=== PATIENT | male | born 1955 | race Two or more races ===

== ENCOUNTER 2019-04-19 02:31 | Inpatient (IN) | payer MEDICARE, OTHER ==
[~2019-04-19] VITALS: Ht 165.1 cm; Wt 80.3 kg
[2019-04-19] VITALS (8 sets, daily range): BP systolic 108–156; BP diastolic 58–90
[2019-04-19] MEDS ORDERED: ALBUTEROL (0.083%) 2.5MG/3ML NEB HHN STA (03:06)
[2019-04-19] MEDS ORDERED: IPRATROPIUM BROMIDE (0.02%) 0.5MG/2.5ML NEB HHN STA (03:06)
[2019-04-19] MEDS ORDERED: METHYLPREDNISOLONE SOD SUCC 125 MG/2 ML VIAL IV STA (03:06)
[2019-04-19] MEDS ORDERED: MAGNESIUM 2 G PREMIX 50 ML IV STA (03:06)
[2019-04-19 03:29] LABS: HEMATOCRIT 51.6 % (42.0-52.0); MEAN CORPUSCULAR VOLUME 94.2 fL (80.0-94.0); PLATELET 229 x1000/uL (130-400); RED BLOOD CELL COUNT 5.48 mill/uL (4.7-6.1); RED CELL DISTRIBUTION WIDTH 13.4 % (11.6-14.6)
[2019-04-19 03:35] LABS: CHLORIDE 106 mEq/L (98-107)
[2019-04-19] MEDS ORDERED: AZITHROMYCIN 500 MG in DEXT 5% WATER 250 ML IV NR (04:15)
[2019-04-19] MEDS ORDERED: CEFTRIAXONE 1 G PREMIX 50 ML IV NR (04:15)
[2019-04-19] MEDS ORDERED: CLONIDINE 0.1MG TABLET PO PRN (07:15)
[2019-04-19] MEDS ORDERED: DOCUSATE SODIUM 100MG CAPSULE PO PRN (07:15)
[2019-04-19] MEDS ORDERED: ACETAMINOPHEN 325MG TABLET PO PRN (07:15)
[2019-04-19] MEDS ORDERED: NITROGLYCERIN 0.4MG TABLET SL SL PRN (07:15)
[2019-04-19] MEDS ORDERED: KETOROLAC 15MG/ML VIAL IV PRN (07:15)
[2019-04-19] MEDS ORDERED: ONDANSETRON HCL 4MG/2ML INJ IV PRN (07:15)
[2019-04-19] MEDS ORDERED: GUAIFENESIN 200MG/10ML SUGAR FREE UDC PO PRN (07:15)
[2019-04-19] MEDS ORDERED: IPRATROPIUM/ALBUTEROL 0.5-3(2.5)MG/3ML NEB NEB PRN (07:15)
[2019-04-19] MEDS ORDERED: MAGNESIUM/ALUMINUM HYDROXIDE/SIMETHICONE 30ML UDC PO PRN (07:15)
[2019-04-19] MEDS ORDERED: LORAZEPAM 0.5MG TABLET PO PRN (07:15)
[2019-04-19] MEDS: GUAIFENESIN/DM 600MG/30MG ER TAB 12HR PO SCH ×2 (10:57→21:51)
[2019-04-19] MEDS: FAMOTIDINE 20MG TABLET PO SCH ×2 (10:57→21:51)
[2019-04-19] MEDS ORDERED: ENOXAPARIN 40MG/0.4ML SYR SUBCUT SCH (11:00)
[2019-04-19 11:58] LABS: *AMPHETAMINES SCREEN URINE NEGATIVE (NEGATIVE); *BARBITURATES SCREEN URINE NEGATIVE (NEGATIVE); *BENZODIAZEPINES SCREEN URINE NEGATIVE (NEGATIVE); *COCAINE SCREEN URINE NEGATIVE (NEGATIVE)
[2019-04-19 11:59] LABS: CANNABINOID URINE SCREEN PRESUMTIVE POSITIVE (NEGATIVE); METHADONE URINE SCREEN NEGATIVE (NEGATIVE); OPIATES URINE SCREEN NEGATIVE (NEGATIVE); PHENCYCLIDINE URINE SCREEN NEGATIVE (NEGATIVE)
[2019-04-19] MEDS: METHYLPREDNISOLONE SOD SUCC 125 MG/2 ML VIAL IV SCH ×2 (12:22→21:55)
[2019-04-19] MEDS: LEVOFLOXACIN 500MG PREMIX 100 ML IV SCH (12:22)
[2019-04-19] MEDS ORDERED: DEXTROSE 50% WATER 50ML SYRINGE IV PRN (13:00)
[2019-04-19] MEDS: FUROSEMIDE 40MG/4ML VIAL IV SCH ×2 (13:29→21:53)
[2019-04-19] MEDS: IPRATROPIUM/ALBUTEROL 0.5-3(2.5)MG/3ML NEB HHN SCH ×2 (15:26→20:26)
[2019-04-19 16:57] LABS: CREATINE KINASE MB FRACTION 20.3 ng/mL (0.5-3.6)
[2019-04-19] MEDS: BLOOD SUGAR DIAGNOSTIC STRIP TEST SCH ×2 (17:29→21:49)
[2019-04-19] MEDS: SPIRONOLACTONE 25MG TABLET PO SCH (17:55)
[2019-04-19] MEDS: INSULIN LISPRO 100 UNITS/ML SUBCUT SCH ×2 (17:56→21:50)
[2019-04-19 20:46] LABS: PROTHROMBIN TIME 10.5 sec (9.6-11.0)
[2019-04-19] MEDS: ATORVASTATIN CALCIUM 20MG TABLET PO SCH (21:51)
[2019-04-19] MEDS: ENOXAPARIN 80MG/0.8ML SYR SUBCUT SCH (22:04)
[2019-04-20] VITALS (11 sets, daily range): BP systolic 90–186; BP diastolic 52–113
[2019-04-20 01:04] LABS: CREATINE KINASE MB FRACTION 16.1 ng/mL (0.5-3.6)
[2019-04-20] MEDS: IPRATROPIUM/ALBUTEROL 0.5-3(2.5)MG/3ML NEB HHN SCH ×6 (03:54→21:15)
[2019-04-20] MEDS: METHYLPREDNISOLONE SOD SUCC 125 MG/2 ML VIAL IV SCH ×3 (05:05→20:57)
[2019-04-20] MEDS: SPIRONOLACTONE 25MG TABLET PO SCH ×2 (05:07→17:25)
[2019-04-20] MEDS: BLOOD SUGAR DIAGNOSTIC STRIP TEST SCH ×4 (07:22→20:56)
[2019-04-20] MEDS: FAMOTIDINE 20MG TABLET PO SCH ×2 (08:41→20:56)
[2019-04-20] MEDS: ASPIRIN 325MG EC TABLET PO SCH (08:41)
[2019-04-20] MEDS: FUROSEMIDE 40MG/4ML VIAL IV SCH ×2 (08:41→20:57)
[2019-04-20] MEDS: ENOXAPARIN 80MG/0.8ML SYR SUBCUT SCH ×2 (08:42→20:57)
[2019-04-20] MEDS: INSULIN LISPRO 100 UNITS/ML SUBCUT SCH ×4 (08:43→21:12)
[2019-04-20] MEDS: GUAIFENESIN/DM 600MG/30MG ER TAB 12HR PO SCH ×2 (08:55→21:18)
[2019-04-20] MEDS: LEVOFLOXACIN 500MG PREMIX 100 ML IV SCH (11:48)
[2019-04-20] MEDS: ATORVASTATIN CALCIUM 20MG TABLET PO SCH (20:56)
[2019-04-20] MEDS: ZOLPIDEM TARTRATE 5MG TABLET PO PRN (22:52)
[2019-04-21] VITALS (18 sets, daily range): BP systolic 110–147; BP diastolic 49–113
[2019-04-21] MEDS: IPRATROPIUM/ALBUTEROL 0.5-3(2.5)MG/3ML NEB HHN SCH ×4 (01:29→20:54)
[2019-04-21] MEDS: METHYLPREDNISOLONE SOD SUCC 125 MG/2 ML VIAL IV SCH ×3 (03:58→20:44)
[2019-04-21] MEDS: SPIRONOLACTONE 25MG TABLET PO SCH (05:28)
[2019-04-21 06:45] LABS: HEMATOCRIT. 48.2 % (42.0-52.0); HEMOGLOBIN. 16.1 g/dL (14.0-18.0); MEAN CORPUSCULAR HEMOGLOBIN 30.9 pg (28.0-32.0); MEAN CORPUSCULAR VOLUME 92.7 fL (80.0-94.0); MEAN PLATELET VOLUME 9.2 fl (7.4-10.4); PLATELET 209 x1000/uL (130-400); RED CELL DISTRIBUTION WIDTH 13.7 % (11.6-14.6)
[2019-04-21] MEDS: BLOOD SUGAR DIAGNOSTIC STRIP TEST SCH ×3 (07:13→20:55)
[2019-04-21 07:45] LABS: CHLORIDE 101 mEq/L (98-107)
[2019-04-21] MEDS: INSULIN LISPRO 100 UNITS/ML SUBCUT SCH ×3 (08:00→20:45)
[2019-04-21] MEDS: GUAIFENESIN/DM 600MG/30MG ER TAB 12HR PO SCH ×2 (08:45→20:17)
[2019-04-21] MEDS: FUROSEMIDE 40MG/4ML VIAL IV SCH ×2 (08:45→20:17)
[2019-04-21] MEDS: SODIUM CHLORIDE 0.45% 1,000 ML IV SCH ×2 (08:45→22:24)
[2019-04-21] MEDS: FAMOTIDINE 20MG TABLET PO SCH ×2 (08:45→20:16)
[2019-04-21] MEDS: ENOXAPARIN 80MG/0.8ML SYR SUBCUT SCH (08:46)
[2019-04-21] MEDS: ASPIRIN 325MG EC TABLET PO SCH (08:48)
[2019-04-21] MEDS ORDERED: IODIXANOL 320MG/ML 100 ML BOTTLE IV ONE (11:10)
[2019-04-21] MEDS ORDERED: LIDOCAINE HCL 1% 20ML VIAL (Pyxis) INJ ONE (11:10)
[2019-04-21] MEDS ORDERED: IOHEXOL-300 100 ML BOTTLE ONE (11:10)
[2019-04-21] MEDS ORDERED: FENTANYL CITRATE/PF 50MCG/ML 2ML VIAL ONE (11:20)
[2019-04-21] MEDS ORDERED: MIDAZOLAM HCL 2 MG/2 ML VIAL ONE (11:20)
[2019-04-21] MEDS ORDERED: ACETAMINOPHEN 325MG TABLET PO PRN (12:15)
[2019-04-21] MEDS ORDERED: ATROPINE SULFATE 1MG/10ML SYR IV PRN (12:15)
[2019-04-21] MEDS ORDERED: ONDANSETRON HCL 4MG/2ML INJ IV PRN (12:15)
[2019-04-21] MEDS: LEVOFLOXACIN 500MG PREMIX 100 ML IV SCH (12:45)
[2019-04-21] MEDS ORDERED: NITROGLYCERIN 0.4MG TABLET SL SL PRN (13:30)
[2019-04-21 13:45] LABS: PLATELET ESTIMATE NORMAL
[2019-04-21 15:39] LABS: CHLORIDE 103 mEq/L (98-107)
[2019-04-21 15:43] LABS: PARTIAL THROMBOPLASTIN TIME 30.2 sec (23.4-31.0); PROTHROMBIN TIME 10.7 sec (9.6-11.0)
[2019-04-21] MEDS ORDERED: MAGNESIUM 2 G PREMIX 50 ML IV SCH (16:00)
[2019-04-21] MEDS: HEPARIN 25,000 UNITS PREMIX 500 ML IV PRN (16:22)
[2019-04-21] MEDS ORDERED: HEPARIN 5000 UNITS/ML VIAL IV PRN ×2 (17:00)
[2019-04-21] MEDS ORDERED: METOPROLOL TARTRATE 5MG/5ML VIAL IV NR (18:37)
[2019-04-21] MEDS: ATORVASTATIN CALCIUM 20MG TABLET PO SCH (20:17)
[2019-04-21] MEDS: ZOLPIDEM TARTRATE 5MG TABLET PO PRN (20:44)
[2019-04-21] MEDS ORDERED: ASCORBIC ACID 500 MG TABLET PO SCH (21:00)
[2019-04-21] MEDS ORDERED: CHLORHEXIDINE GLUCONATE 4% EXTERNAL USE TOP SCH (21:00)
[2019-04-21] MEDS ORDERED: BISACODYL 10MG SUPP PR SCH (21:00)
[2019-04-21] MEDS ORDERED: DOCUSATE SODIUM 100MG CAPSULE PO SCH (21:00)
[2019-04-21] MEDS ORDERED: ALLOPURINOL 300 MG TABLET PO SCH (21:00)
[2019-04-21] MEDS ORDERED: METOPROLOL TARTRATE 5MG/5ML VIAL IV PRN (22:00)
[2019-04-22] VITALS (12 sets, daily range): BP systolic 101–161; BP diastolic 59–100
[2019-04-22] MEDS: IPRATROPIUM/ALBUTEROL 0.5-3(2.5)MG/3ML NEB HHN SCH ×6 (00:45→20:31)
[2019-04-22] MEDS ORDERED: HEPARIN BOLUS PRN aPTT 30-44 IV ×2 (02:00)
[2019-04-22] MEDS ORDERED: HEPARIN BOLUS PRN aPTT <30 IV ×2 (02:00)
[2019-04-22] MEDS ORDERED: CHLORHEXIDINE GLUCONATE 4% EXTERNAL USE TOP SCH ×2 (04:00→21:00)
[2019-04-22] MEDS: METHYLPREDNISOLONE SOD SUCC 125 MG/2 ML VIAL IV SCH ×3 (04:29→20:12)
[2019-04-22] MEDS: BLOOD SUGAR DIAGNOSTIC STRIP TEST SCH ×4 (06:50→21:00)
[2019-04-22] MEDS: INSULIN LISPRO 100 UNITS/ML SUBCUT SCH ×4 (06:59→21:13)
[2019-04-22 07:37] LABS: CHLORIDE 101 mEq/L (98-107)
[2019-04-22 07:49] LABS: HEMATOCRIT. 47.2 % (42.0-52.0); HEMOGLOBIN. 15.8 g/dL (14.0-18.0); MEAN CORPUSCULAR VOLUME 92.4 fL (80.0-94.0); MEAN PLATELET VOLUME 9.4 fl (7.4-10.4); PLATELET 195 x1000/uL (130-400); RED BLOOD CELL COUNT 5.11 mill/uL (4.7-6.1); RED CELL DISTRIBUTION WIDTH 13.6 % (11.6-14.6)
[2019-04-22] MEDS: ASPIRIN 81MG EC TABLET PO SCH (08:51)
[2019-04-22] MEDS: GUAIFENESIN/DM 600MG/30MG ER TAB 12HR PO SCH ×2 (08:51→20:13)
[2019-04-22] MEDS: FUROSEMIDE 40MG/4ML VIAL IV SCH ×2 (08:52→20:12)
[2019-04-22] MEDS: FAMOTIDINE 20MG TABLET PO SCH ×2 (08:52→20:13)
[2019-04-22] MEDS ORDERED: METOPROLOL TARTRATE 5MG/5ML VIAL IV SCH (09:00)
[2019-04-22] MEDS: SODIUM CHLORIDE 0.45% 1,000 ML IV SCH (09:13)
[2019-04-22] MEDS: LEVOFLOXACIN 500MG PREMIX 100 ML IV SCH (11:15)
[2019-04-22] MEDS ORDERED: MAGNESIUM 2 G PREMIX 50 ML IV NR (11:30)
[2019-04-22] MEDS ORDERED: MINERAL OIL 30ML BOTTLE PO NR (11:30)
[2019-04-22 11:33] LABS: PLATELET ESTIMATE NORMAL
[2019-04-22] MEDS ORDERED: MEDIUM CHAIN TRIGLYCERIDES PO SCH (12:00)
[2019-04-22] MEDS: METOPROLOL TARTRATE 5MG/5ML VIAL IV SCH ×2 (13:57→21:36)
[2019-04-22] MEDS: HEPARIN 25,000 UNITS PREMIX 500 ML IV PRN (14:28)
[2019-04-22] MEDS: ALLOPURINOL 300 MG TABLET PO SCH (20:13)
[2019-04-22] MEDS: ATORVASTATIN CALCIUM 20MG TABLET PO SCH (20:13)
[2019-04-22] MEDS ORDERED: ASCORBIC ACID 500 MG TABLET PO SCH (21:00)
[2019-04-22] MEDS: ZOLPIDEM TARTRATE 5MG TABLET PO PRN (22:07)
[2019-04-23] VITALS (68 sets, daily range): BP systolic 100–271; BP diastolic -4–101
[2019-04-23] MEDS: SODIUM CHLORIDE 0.45% 1,000 ML IV SCH ×2 (00:05→11:00)
[2019-04-23] MEDS: IPRATROPIUM/ALBUTEROL 0.5-3(2.5)MG/3ML NEB HHN SCH ×4 (00:35→15:23)
[2019-04-23] MEDS ORDERED: DOPAMINE 400MG/250ML PREMIX 250 ML IV PRN ×3 (04:45→14:16)
[2019-04-23] MEDS ORDERED: DILTIAZEM HCL 5MG/ML 25ML VIAL IV PRN (05:00)
[2019-04-23] MEDS ORDERED: METHYLENE BLUE 50 MG/10 ML AMP IV ONE (05:12)
[2019-04-23] MEDS ORDERED: THROMBIN (BOVINE) 5000 UNITS/VIAL TOP ONE (05:13)
[2019-04-23] MEDS ORDERED: BACITRACIN 15GM TUBE TOP ONE (05:13)
[2019-04-23] MEDS ORDERED: BACITRACIN 50,000 UNITS/VIAL ONE (05:14)
[2019-04-23] MEDS ORDERED: HEPARIN 1000 UNITS/ML 10ML ONE ×4 (05:52→08:28)
[2019-04-23] MEDS ORDERED: NICARDIPINE 50 MG in NS 250 ML IV PRN (06:00)
[2019-04-23] MEDS ORDERED: CEFAZOLIN 2,000 MG in DEXT 5% WATER 100 ML IV PRN (06:00)
[2019-04-23] MEDS ORDERED: PAPAVERINE HCL 180MG in SODIUM CHLORIDE 0.9% 24ML IV PRN (06:00)
[2019-04-23] MEDS ORDERED: INSULIN REGULAR (DRIP) 100 UNITS in SODIUM CHLORIDE 0.9% 99 ML IV PRN ×2 (06:00→20:30)
[2019-04-23] MEDS ORDERED: NOREPINEPHRINE 4 MG in DEXT 5% WATER 246 ML IV PRN (06:00)
[2019-04-23] MEDS ORDERED: CHLORHEXIDINE GLUCONATE 4% EXTERNAL USE TOP NR (06:00)
[2019-04-23] MEDS ORDERED: EPINEPHRINE 4 MG in DEXT 5% WATER 246 ML IV PRN (06:00)
[2019-04-23] MEDS ORDERED: DEL NIDO ELECTROLYTE-S(PH 7.4) 1,000 ML IV PRN ×2 (06:00)
[2019-04-23] MEDS ORDERED: PHENYLEPHRINE 10 MG in DEXT 5% WATER 249 ML IV PRN (06:00)
[2019-04-23] MEDS ORDERED: DOBUTAMINE 250MG PREMIX 250 ML IV PRN (06:00)
[2019-04-23] MEDS ORDERED: AMINOCAPROIC ACID 10,000 MG in SODIUM CHLORIDE 0.9% 460 ML IV PRN (06:00)
[2019-04-23] MEDS ORDERED: ACETAMINOPHEN 500MG TABLET PO SCH (06:30)
[2019-04-23] MEDS ORDERED: ETOMIDATE 2MG/ML 10ML VIAL IV ONE (06:43)
[2019-04-23] MEDS ORDERED: FENTANYL CITRATE/PF 50MCG/ML 5ML VIAL ONE (06:43)
[2019-04-23] MEDS ORDERED: MIDAZOLAM HCL 2 MG/2 ML VIAL ONE (06:43)
[2019-04-23] MEDS ORDERED: PHENYLEPHRINE HCL 10 MG/ML 1ML (IV VIAL) IV ONE ×2 (06:48→08:15)
[2019-04-23] MEDS ORDERED: PROPOFOL 10MG/ML 100ML 100 ML IV ONE (06:52)
[2019-04-23] MEDS ORDERED: METOPROLOL TARTRATE 5MG/5ML VIAL IV ONE (07:03)
[2019-04-23 07:50] LABS: CHLORIDE 102 mEq/L (98-107); HEMATOCRIT. 48.6 % (42.0-52.0); HEMOGLOBIN. 16.3 g/dL (14.0-18.0); MEAN CORPUSCULAR HEMOGLOBIN 30.9 pg (28.0-32.0); MEAN CORPUSCULAR VOLUME 92.4 fL (80.0-94.0); PLATELET 195 x1000/uL (130-400); RED BLOOD CELL COUNT 5.25 mill/uL (4.7-6.1); RED CELL DISTRIBUTION WIDTH 13.5 % (11.6-14.6)
[2019-04-23] MEDS ORDERED: HEPARIN 10,000 UNITS/ML VIAL ONE (07:50)
[2019-04-23] MEDS ORDERED: FUROSEMIDE 100MG/10ML VIAL ONE (08:09)
[2019-04-23] MEDS ORDERED: AMINOCAPROIC ACID 250 MG/ML 20ML VIAL ONE (08:14)
[2019-04-23] MEDS ORDERED: MAGNESIUM SULFATE 5GM/10ML VIAL IV ONE (08:14)
[2019-04-23] MEDS ORDERED: SODIUM BICARBONATE 8.4% 1 MEQ/ML 50ML SYR IV ONE ×2 (08:15→08:16)
[2019-04-23] MEDS ORDERED: ALBUMIN HUMAN 25GM/100ML (25%) IV ONE (08:15)
[2019-04-23] MEDS ORDERED: CALCIUM CHLORIDE 1GM/10ML SYR IV ONE ×2 (08:15→10:08)
[2019-04-23] MEDS ORDERED: MANNITOL 20% 500 ML IV ONE (08:16)
[2019-04-23] MEDS ORDERED: NITROGLYCERIN 50MG PREMIX 250 ML IV ONE (08:30)
[2019-04-23] MEDS ORDERED: SKIN ADHESIVE 0.7 GM EA TOP ONE (08:55)
[2019-04-23] MEDS ORDERED: ONDANSETRON HCL 4MG/2ML INJ ONE (09:36)
[2019-04-23] MEDS ORDERED: METOCLOPRAMIDE HCL 10MG/2ML VIAL ONE (09:36)
[2019-04-23] MEDS ORDERED: PROTAMINE SULFATE 10MG/ML VIAL 25ML IV ONE (09:36)
[2019-04-23] MEDS ORDERED: DEXMEDETOMIDINE 400 MCG/100 ML 100 ML IV SCH (09:45)
[2019-04-23] MEDS ORDERED: NEOSTIGMINE METHYLSULFATE 1MG/ML 10 ML VIAL ONE (09:55)
[2019-04-23] MEDS ORDERED: SODIUM CHLORIDE 0.9% 500 ML IV PRN (10:14)
[2019-04-23] MEDS ORDERED: EPINEPHRINE 1 MG in DEXT 5% WATER 250 ML IV PRN (10:15)
[2019-04-23] MEDS ORDERED: MAGNESIUM SULFATE 3 GM in DEXT 5% WATER 100 ML IV PRN (10:15)
[2019-04-23] MEDS ORDERED: MORPHINE SULFATE 2 MG/ML CPJ (NOT FOR IM USE) IV PRN (10:15)
[2019-04-23] MEDS ORDERED: CALCIUM CHLORIDE 3,000 MG in DEXT 5% WATER 250 ML IV PRN (10:15)
[2019-04-23] MEDS ORDERED: KETOROLAC 30MG/ML VIAL ONE (10:20)
[2019-04-23] MEDS ORDERED: LABETALOL HCL 5MG/ML VIAL 20ML IV ONE (10:23)
[2019-04-23] MEDS ORDERED: MAGNESIUM 2 G PREMIX 50 ML IV PRN (10:30)
[2019-04-23] MEDS: LEVOFLOXACIN 500MG PREMIX 100 ML IV SCH (11:00)
[2019-04-23 11:07] LABS: MEAN CORPUSCULAR HEMOGLOBIN 32.3 pg (28.0-32.0); MEAN CORPUSCULAR VOLUME 91.8 fL (80.0-94.0); MEAN PLATELET VOLUME 9.2 fl (7.4-10.4); PLATELET 195 x1000/uL (130-400); RED BLOOD CELL COUNT 3.81 mill/uL (4.7-6.1); RED CELL DISTRIBUTION WIDTH 13.2 % (11.6-14.6)
[2019-04-23 11:11] LABS: BG CARBOXYHEMOGLOBIN 0.3 % (0.5-1.5); BG DEOXYHEMOGLOBIN 0.9 % (0.0-5.0); BG FRACTION INSPIRED OXYGEN 80; BG HCO3 ACT 31.2 mmol/L (22.0-26.0); BG METHEMOGLOBIN 0.4 % (0.0-1.5); BG OXYGEN SATURATION 99.1 % (92.0-98.5); BG OXYHEMOGLOBIN 98.4 % (94.0-97.0); BG PCO2 53.1 mmHg (35.0-45.0); BG PH 7.387 (7.350-7.450); BG PO2 236.8 mmHg (75.0-100.0); BG SAMPLE SITE A-LINE; BG TOTAL HEMOGLOBIN 12.9 g/dL (12.0-18.0); BG VENT MODE MASK - SIMPLE
[2019-04-23 11:13] LABS: HEMOGLOBIN. 12.3 g/dL (14.0-18.0)
[2019-04-23] MEDS: DEXT 5%/0.45% NACL 1000ML 1,000 ML IV SCH (11:56)
[2019-04-23] MEDS: METHYLPREDNISOLONE SOD SUCC 125 MG/2 ML VIAL IV SCH (12:00)
[2019-04-23] MEDS: ASPIRIN 81MG EC TABLET PO SCH (12:00)
[2019-04-23] MEDS: BLOOD SUGAR DIAGNOSTIC STRIP TEST SCH ×14 (12:00→23:31)
[2019-04-23] MEDS: METOPROLOL TARTRATE 5MG/5ML VIAL IV SCH ×2 (12:00→14:00)
[2019-04-23] MEDS: FUROSEMIDE 40MG/4ML VIAL IV SCH (12:00)
[2019-04-23] MEDS: FAMOTIDINE 20MG TABLET PO SCH (12:00)
[2019-04-23] MEDS: ALLOPURINOL 300 MG TABLET PO SCH (12:00)
[2019-04-23] MEDS: GUAIFENESIN/DM 600MG/30MG ER TAB 12HR PO SCH (12:00)
[2019-04-23] MEDS ORDERED: PROTAMINE SULFATE 10MG/ML VIAL 25ML IV STA (12:05)
[2019-04-23 12:10] LABS: CHLORIDE 101 mEq/L (98-107)
[2019-04-23 12:14] LABS: INR 1.3; PROTHROMBIN TIME 12.9 sec (9.6-11.0)
[2019-04-23 12:16] LABS: PARTIAL THROMBOPLASTIN TIME 27.3 sec (23.4-31.0)
[2019-04-23] MEDS ORDERED: ALBUMIN HUMAN 12.5G/250ML (5%) IV NR (13:30)
[2019-04-23] MEDS ORDERED: PROTAMINE SULFATE 10MG/ML VIAL 25ML IV NR (13:30)
[2019-04-23] MEDS ORDERED: CALCIUM CHLORIDE IV PRN (13:45)
[2019-04-23] MEDS ORDERED: SODIUM CHLORIDE 0.9% IV PRN (13:45)
[2019-04-23] MEDS: KCL 10MEQ/50ML PREMIX 100 ML IV PRN ×2 (13:46→15:03)
[2019-04-23] MEDS ORDERED: KCL 10MEQ/50ML PREMIX 200 ML IV PRN (14:00)
[2019-04-23] MEDS: ALBUMIN HUMAN 12.5G/250ML (5%) IV PRN (14:23)
[2019-04-23] MEDS ORDERED: EPINEPHRINE 1 MG in DEXT 5% WATER 249 ML IV PRN (14:30)
[2019-04-23] MEDS ORDERED: SODIUM CHLORIDE 0.9% 1,000 ML IV SCH (14:45)
[2019-04-23] MEDS: CEFAZOLIN 1000MG PREMIX 50 ML IV SCH ×2 (14:56→23:30)
[2019-04-23] MEDS: OXYCODONE HCL/ACETAMINOPHEN 5/325MG TABLET PO PRN (16:18)
[2019-04-23 16:32] LABS: PLATELET ESTIMATE NORMAL
[2019-04-23] MEDS: BACITRACIN 15GM TUBE TOP SCH (16:47)
[2019-04-23] MEDS ORDERED: DOCUSATE SODIUM 100MG CAPSULE PO SCH (17:00)
[2019-04-23] MEDS: MORPHINE SULFATE 2 MG/ML CPJ (NOT FOR IM USE) IV PRN (17:03)
[2019-04-23 17:37] LABS: PLATELET ESTIMATE NORMAL
[2019-04-23 18:04] LABS: HEMATOCRIT 30.3 % (42.0-52.0); HEMOGLOBIN 10.4 g/dL (14.0-18.0); MEAN CORPUSCULAR HEMOGLOBIN 31.4 pg (28.0-32.0); MEAN CORPUSCULAR VOLUME 91.5 fL (80.0-94.0); PLATELET 147 x1000/uL (130-400); RED BLOOD CELL COUNT 3.31 mill/uL (4.7-6.1); RED CELL DISTRIBUTION WIDTH 13.6 % (11.6-14.6)
[2019-04-23 18:06] LABS: CHLORIDE 104 mEq/L (98-107)
[2019-04-23] MEDS: MAGNESIUM 1 G PREMIX 100 ML IV PRN (18:17)
[2019-04-23 18:45] LABS: CLARITY URINE CLEAR (CLEAR); COLOR URINE RED (YELLOW); KETONES URINE NEGATIVE (NEGATIVE); LEUKOCYTE ESTERASE URINE 1+ (NEGATIVE); NITRITE URINE POSITIVE (NEGATIVE); OCCULT BLOOD URINE 2+ (NEGATIVE); PROTEIN URINE 2+ (NEGATIVE); SPECIFIC GRAVITY URINE 1.016 (1.005-1.030); UROBILINOGEN URINE 0.2 E.U./dL (0.2-1.0)
[2019-04-23] MEDS: KETOROLAC 30MG/ML VIAL IV PRN (20:11)
[2019-04-23] MEDS ORDERED: DEXTROSE 50% WATER 50ML SYRINGE IV PRN ×2 (20:30)
[2019-04-23] MEDS ORDERED: INSULIN REGULAR (DRIP) 100 UNITS in SODIUM CHLORIDE 0.9% 100 ML IV SCH (20:35)
[2019-04-24] VITALS (74 sets, daily range): BP systolic 90–157; BP diastolic -3–78
[2019-04-24] MEDS: OXYCODONE HCL/ACETAMINOPHEN 5/325MG TABLET PO PRN ×2 (00:11→12:34)
[2019-04-24] MEDS: IPRATROPIUM/ALBUTEROL 0.5-3(2.5)MG/3ML NEB HHN SCH ×6 (00:29→21:08)
[2019-04-24 00:38] LABS: HEMATOCRIT 30.3 % (42.0-52.0); HEMOGLOBIN 10.3 g/dL (14.0-18.0)
[2019-04-24] MEDS: MORPHINE SULFATE 2 MG/ML CPJ (NOT FOR IM USE) IV PRN ×3 (01:12→23:24)
[2019-04-24] MEDS: BLOOD SUGAR DIAGNOSTIC STRIP TEST SCH ×16 (01:26→21:00)
[2019-04-24] MEDS ORDERED: NICARDIPINE 50 MG in SODIUM CHLORIDE 0.9% 230 ML IV PRN (01:30)
[2019-04-24] MEDS ORDERED: METOPROLOL TARTRATE 25MG TABLET PO SCH (03:00)
[2019-04-24] MEDS: MAGNESIUM HYDROXIDE 400MG/5ML 30ML UDC PO PRN (03:19)
[2019-04-24] MEDS: ALBUMIN HUMAN 25GM/100ML (25%) IV SCH ×2 (03:19→05:42)
[2019-04-24] MEDS: KETOROLAC 30MG/ML VIAL IV PRN (03:21)
[2019-04-24 05:27] LABS: BASOPHILS % 0.2 % (0.0-2.0); HEMATOCRIT. 27.5 % (42.0-52.0); HEMOGLOBIN. 9.4 g/dL (14.0-18.0); LYMPHOCYTES % 8.1 % (20.0-50.0); MEAN PLATELET VOLUME 9.8 fl (7.4-10.4); MONOCYTES % 11.6 % (2.0-8.0); NEUTROPHILS % 80.1 % (40.0-76.0); PLATELET 110 x1000/uL (130-400); RED BLOOD CELL COUNT 3.02 mill/uL (4.7-6.1); RED CELL DISTRIBUTION WIDTH 13.6 % (11.6-14.6)
[2019-04-24 05:35] LABS: CHLORIDE 102 mEq/L (98-107)
[2019-04-24] MEDS: CEFAZOLIN 1000MG PREMIX 50 ML IV SCH ×2 (05:41→15:21)
[2019-04-24 05:44] LABS: PHOSPHORUS 3.9 mg/dL (2.5-4.9)
[2019-04-24] MEDS: DEXT 5%/0.45% NACL 1000ML 1,000 ML IV SCH (05:44)
[2019-04-24] MEDS: KCL 10MEQ/50ML PREMIX 150 ML IV PRN ×2 (06:04→15:21)
[2019-04-24] MEDS: MAGNESIUM 1 G PREMIX 100 ML IV PRN (06:53)
[2019-04-24] MEDS: ALBUMIN HUMAN 12.5G/250ML (5%) IV PRN ×2 (08:23→08:53)
[2019-04-24] MEDS: BACITRACIN 15GM TUBE TOP SCH ×2 (08:58→17:00)
[2019-04-24] MEDS ORDERED: FUROSEMIDE 40MG/4ML VIAL IVP SCH (10:30)
[2019-04-24] MEDS: ASPIRIN 81MG TABLET PO SCH (10:37)
[2019-04-24] MEDS: LEVOFLOXACIN 500MG PREMIX 100 ML IV SCH (10:37)
[2019-04-24] MEDS: INSULIN GLARGINE UD 100 UNITS/ML SYR SUBCUT SCH ×2 (13:51→22:25)
[2019-04-24 14:06] LABS: BASOPHILS % 0.1 % (0.0-2.0); HEMATOCRIT. 25.1 % (42.0-52.0); HEMOGLOBIN. 8.4 g/dL (14.0-18.0); LYMPHOCYTES % 9.4 % (20.0-50.0); MEAN CORPUSCULAR HEMOGLOBIN 30.9 pg (28.0-32.0); MEAN CORPUSCULAR VOLUME 92.2 fL (80.0-94.0); MONOCYTES % 8.7 % (2.0-8.0); NEUTROPHILS % 81.8 % (40.0-76.0); PLATELET 90 x1000/uL (130-400); RED BLOOD CELL COUNT 2.72 mill/uL (4.7-6.1); RED CELL DISTRIBUTION WIDTH 13.3 % (11.6-14.6)
[2019-04-24 14:31] LABS: CHLORIDE 100 mEq/L (98-107)
[2019-04-24] MEDS: INSULIN LISPRO 100 UNITS/ML SUBCUT SCH ×2 (18:20→22:25)
[2019-04-24 20:58] LABS: HEMATOCRIT 26.1 % (42.0-52.0); HEMOGLOBIN 8.9 g/dL (14.0-18.0)
[2019-04-24] MEDS: ATORVASTATIN CALCIUM 40MG TABLET PO SCH (22:21)
[2019-04-24] MEDS: METOPROLOL TARTRATE 25MG TABLET PO SCH (22:23)
[2019-04-25] VITALS (14 sets, daily range): BP systolic 113–158; BP diastolic 57–78
[2019-04-25] MEDS: IPRATROPIUM/ALBUTEROL 0.5-3(2.5)MG/3ML NEB HHN SCH ×6 (01:21→21:16)
[2019-04-25] MEDS: MORPHINE SULFATE 2 MG/ML CPJ (NOT FOR IM USE) IV PRN ×3 (03:58→23:20)
[2019-04-25 06:17] LABS: BASOPHILS % 0.1 % (0.0-2.0); HEMOGLOBIN. 8.9 g/dL (14.0-18.0); MEAN CORPUSCULAR HEMOGLOBIN 31.4 pg (28.0-32.0); MEAN CORPUSCULAR VOLUME 92.2 fL (80.0-94.0); MEAN PLATELET VOLUME 10.5 fl (7.4-10.4); MONOCYTES % 11.9 % (2.0-8.0); PLATELET 87 x1000/uL (130-400); RED BLOOD CELL COUNT 2.82 mill/uL (4.7-6.1); RED CELL DISTRIBUTION WIDTH 13.2 % (11.6-14.6)
[2019-04-25 06:22] LABS: CHLORIDE 100 mEq/L (98-107)
[2019-04-25 06:35] LABS: PHOSPHORUS 3.4 mg/dL (2.5-4.9)
[2019-04-25] MEDS: BLOOD SUGAR DIAGNOSTIC STRIP TEST SCH ×4 (06:51→20:32)
[2019-04-25] MEDS: INSULIN LISPRO 100 UNITS/ML SUBCUT SCH ×4 (08:40→20:32)
[2019-04-25] MEDS: ASPIRIN 81MG TABLET PO SCH (08:40)
[2019-04-25] MEDS: FOLIC ACID 1MG TABLET PO SCH (08:40)
[2019-04-25] MEDS: THIAMINE HCL 100MG TABLET PO SCH (08:40)
[2019-04-25] MEDS: METOPROLOL TARTRATE 25MG TABLET PO SCH ×2 (08:41→20:18)
[2019-04-25] MEDS: FUROSEMIDE 40MG TABLET PO SCH (09:54)
[2019-04-25] MEDS: DOCUSATE SODIUM 100MG CAPSULE PO SCH ×2 (09:54→17:26)
[2019-04-25] MEDS ORDERED: MINERAL OIL 30ML BOTTLE PO SCH (10:00)
[2019-04-25] MEDS: BACITRACIN 15GM TUBE TOP SCH ×2 (10:51→17:26)
[2019-04-25] MEDS: LEVOFLOXACIN 500MG PREMIX 100 ML IV SCH (10:51)
[2019-04-25] MEDS: INSULIN GLARGINE UD 100 UNITS/ML SYR SUBCUT SCH ×2 (11:08→21:36)
[2019-04-25] MEDS: HYDROCODONE/ACETAMINOPHEN 5/325MG TABLET PO PRN ×2 (12:28→17:26)
[2019-04-25] MEDS: ATORVASTATIN CALCIUM 40MG TABLET PO SCH (20:18)
[2019-04-25] MEDS: MAGNESIUM HYDROXIDE 400MG/5ML 30ML UDC PO PRN (23:19)
[2019-04-26] VITALS (17 sets, daily range): BP systolic 108–148; BP diastolic 53–83
[2019-04-26] MEDS: IPRATROPIUM/ALBUTEROL 0.5-3(2.5)MG/3ML NEB HHN SCH ×6 (04:00→21:04)
[2019-04-26] MEDS: MAGNESIUM HYDROXIDE 400MG/5ML 30ML UDC PO PRN (05:40)
[2019-04-26] MEDS: MORPHINE SULFATE 2 MG/ML CPJ (NOT FOR IM USE) IV PRN ×2 (05:41→13:20)
[2019-04-26] MEDS: BLOOD SUGAR DIAGNOSTIC STRIP TEST SCH ×4 (05:45→20:38)
[2019-04-26] MEDS: INSULIN LISPRO 100 UNITS/ML SUBCUT SCH ×4 (07:20→20:40)
[2019-04-26] MEDS: DOCUSATE SODIUM 100MG CAPSULE PO SCH ×2 (09:04→17:47)
[2019-04-26] MEDS: FUROSEMIDE 40MG TABLET PO SCH (09:04)
[2019-04-26] MEDS: FOLIC ACID 1MG TABLET PO SCH (09:04)
[2019-04-26] MEDS: ASPIRIN 81MG TABLET PO SCH (09:04)
[2019-04-26] MEDS: THIAMINE HCL 100MG TABLET PO SCH (09:04)
[2019-04-26] MEDS: BACITRACIN 15GM TUBE TOP SCH ×2 (09:05→17:48)
[2019-04-26] MEDS: INSULIN GLARGINE UD 100 UNITS/ML SYR SUBCUT SCH ×2 (09:11→22:24)
[2019-04-26] MEDS: METOPROLOL TARTRATE 25MG TABLET PO SCH ×2 (09:12→20:38)
[2019-04-26 10:42] LABS: HEMATOCRIT. 26.5 % (42.0-52.0); HEMOGLOBIN. 8.9 g/dL (14.0-18.0); MEAN CORPUSCULAR HEMOGLOBIN 31.1 pg (28.0-32.0); MEAN CORPUSCULAR VOLUME 92.8 fL (80.0-94.0); MEAN PLATELET VOLUME 10.2 fl (7.4-10.4); PLATELET 123 x1000/uL (130-400); RED BLOOD CELL COUNT 2.86 mill/uL (4.7-6.1); RED CELL DISTRIBUTION WIDTH 13.4 % (11.6-14.6)
[2019-04-26 10:59] LABS: CHLORIDE 101 mEq/L (98-107)
[2019-04-26] MEDS: POLYETHYLENE GLYCOL 3350 (17GM) 1 DOSE PACK PO SCH (11:00)
[2019-04-26 11:04] LABS: PHOSPHORUS 2.4 mg/dL (2.5-4.9)
[2019-04-26 11:16] LABS: PLATELET ESTIMATE SLIGHTLY DECREASED
[2019-04-26] MEDS ORDERED: SODIUM PHOS,M-BASIC-D-BASIC 10 MM in DEXT 5% WATER 246.6667 ML IV NR (12:30)
[2019-04-26] MEDS ORDERED: FUROSEMIDE 40MG/4ML VIAL IVP NR (13:15)
[2019-04-26] MEDS ORDERED: MAGNESIUM 2 G PREMIX 50 ML IV NR (14:30)
[2019-04-26] MEDS: HYDROCODONE/ACETAMINOPHEN 5/325MG TABLET PO PRN (17:49)
[2019-04-26] MEDS: ATORVASTATIN CALCIUM 40MG TABLET PO SCH (20:37)
[2019-04-27] VITALS (14 sets, daily range): BP systolic 121–152; BP diastolic 66–87
[2019-04-27] MEDS: BLOOD SUGAR DIAGNOSTIC STRIP TEST SCH ×2 (06:36→12:34)
[2019-04-27] MEDS: INSULIN LISPRO 100 UNITS/ML SUBCUT SCH ×2 (07:20→12:42)
[2019-04-27 07:22] LABS: CHLORIDE 102 mEq/L (98-107)
[2019-04-27 07:47] LABS: BASOPHILS % 0.1 % (0.0-2.0); EOSINOPHILS % 0.8 % (0.0-5.0); HEMOGLOBIN. 9.3 g/dL (14.0-18.0); LYMPHOCYTES % 9.1 % (20.0-50.0); MEAN CORPUSCULAR HEMOGLOBIN 30.7 pg (28.0-32.0); MEAN CORPUSCULAR VOLUME 91.9 fL (80.0-94.0); MEAN PLATELET VOLUME 9.4 fl (7.4-10.4); MONOCYTES % 10.7 % (2.0-8.0); NEUTROPHILS % 79.3 % (40.0-76.0); PLATELET 179 x1000/uL (130-400); RED BLOOD CELL COUNT 3.04 mill/uL (4.7-6.1); RED CELL DISTRIBUTION WIDTH 13.3 % (11.6-14.6)
[2019-04-27] MEDS: IPRATROPIUM/ALBUTEROL 0.5-3(2.5)MG/3ML NEB HHN SCH ×3 (08:00→12:00)
[2019-04-27] MEDS: FUROSEMIDE 40MG TABLET PO SCH (08:42)
[2019-04-27] MEDS: THIAMINE HCL 100MG TABLET PO SCH (08:42)
[2019-04-27] MEDS: DOCUSATE SODIUM 100MG CAPSULE PO SCH (08:42)
[2019-04-27] MEDS: POLYETHYLENE GLYCOL 3350 (17GM) 1 DOSE PACK PO SCH (08:42)
[2019-04-27] MEDS: ASPIRIN 81MG TABLET PO SCH (08:42)
[2019-04-27] MEDS: FOLIC ACID 1MG TABLET PO SCH (08:42)
[2019-04-27] MEDS: METOPROLOL TARTRATE 25MG TABLET PO SCH (08:42)
[2019-04-27] MEDS ORDERED: CEFTRIAXONE SODIUM 1 G/VIAL IV ONE (08:45)
[2019-04-27] MEDS: BACITRACIN 15GM TUBE TOP SCH (09:00)
[2019-04-27] MEDS ORDERED: SULFAMETHOXAZOLE/TRIMETHOPRIM 800/160MG TABLET PO SCH (10:00)
[2019-04-27] MEDS ORDERED: AMLODIPINE 5MG TABLET PO SCH (10:00)
[2019-04-27] MEDS: INSULIN GLARGINE UD 100 UNITS/ML SYR SUBCUT SCH (10:59)
[2019-04-27] MEDS ORDERED: CEFTRIAXONE 1 G PREMIX 50 ML IV NR (12:00)
[2019-04-27] MEDS ORDERED: METOPROLOL TARTRATE 50MG TABLET PO SCH (21:00)
[2019-04-27] MEDS ORDERED: FAMOTIDINE 20MG TABLET PO SCH (21:00)
[2019-04-27] MEDS ORDERED: ATORVASTATIN CALCIUM 40MG TABLET PO SCH (21:00)
== END 2019-04-27 15:20 | DRG 233 ==
LOC: ER 03:29 → 5EST 04:06 → ENRESERV 04:46 → CANRESERV 04:46 → ENRESERV 07:03 → 3WST 04-21 12:28 → CVICU 04-23 08:31 → 3WST 04-24 18:21
PROVIDERS: ADMIT Internal Medicine; ATTEND Internal Medicine
PROC: 5A09357 Assistance with Respiratory Ventilation, Less than 24 Consecutive Hours, Continuous Positive Airway Pressure (ICD-10-PCS; 2019-04-19)
PROC: 4A023N7 Measurement of Cardiac Sampling and Pressure, Left Heart, Percutaneous Approach (ICD-10-PCS; 2019-04-21)
PROC: B211YZZ Fluoroscopy of Multiple Coronary Arteries using Other Contrast (ICD-10-PCS; 2019-04-21)
PROC: B215YZZ Fluoroscopy of Left Heart using Other Contrast (ICD-10-PCS; 2019-04-21)
PROC: 02100Z9 Bypass Coronary Artery, One Artery from Left Internal Mammary, Open Approach (ICD-10-PCS; principal; 2019-04-23)
PROC: 021209W Bypass Coronary Artery, Three Arteries from Aorta with Autologous Venous Tissue, Open Approach (ICD-10-PCS; 2019-04-23)
PROC: 06BP4ZZ Excision of Right Saphenous Vein, Percutaneous Endoscopic Approach (ICD-10-PCS; 2019-04-23)
PROC: 5A1221Z Performance of Cardiac Output, Continuous (ICD-10-PCS; 2019-04-23)
DX: I21.4 Non-ST elevation (NSTEMI) myocardial infarction (principal); J96.00 Acute respiratory failure, unspecified whether with hypoxia or hypercapnia; I50.43 Acute on chronic combined systolic (congestive) and diastolic (congestive) heart failure; J44.1 Chronic obstructive pulmonary disease with (acute) exacerbation; I42.9 Cardiomyopathy, unspecified; I47.2 Ventricular tachycardia; J45.901 Unspecified asthma with (acute) exacerbation; J98.11 Atelectasis; N39.0 Urinary tract infection, site not specified; I25.10 Atherosclerotic heart disease of native coronary artery without angina pectoris; I11.0 Hypertensive heart disease with heart failure; F12.10 Cannabis abuse, uncomplicated; R26.9 Unspecified abnormalities of gait and mobility; D72.829 Elevated white blood cell count, unspecified; E11.42 Type 2 diabetes mellitus with diabetic polyneuropathy; R31.0 Gross hematuria; D64.9 Anemia, unspecified; D69.6 Thrombocytopenia, unspecified; E78.00 Pure hypercholesterolemia, unspecified; E78.5 Hyperlipidemia, unspecified; E87.6 Hypokalemia; F17.210 Nicotine dependence, cigarettes, uncomplicated; Z79.899 Other long term (current) drug therapy; Z82.49 Family history of ischemic heart disease and other diseases of the circulatory system; Z85.46 Personal history of malignant neoplasm of prostate
CPT/HCPCS: 36415; 36600; 71045; 76857; 80048; 80061; 80305; 81003; 82330; 82375; 82550; 82553; 82805; 82962; 83036; 83605; 83735; 83880; 84100; 84145; 84484; 85014; 85018; 85027; 86850; 86900; 86920; 93005; 93306; 93458; 93880; 93970; 96365; 97110; 97116; 97162; 97166; 97530; 99291; C1725; C1769; C1893; J0456; J0690; J0696; J1644; J1650; J1815; J1885; J1940; J1956; J2250; J2270; J2370; J2405; J2704; J2710; J2720; J2765; J2930; J3010; J3475; J3480; J3490; J7030; J7040; J7042; J7050; J7060; J7611; J7620; P9041; P9047; Q9957; Q9967; Q9968

== ENCOUNTER 2019-07-22 15:46 | Inpatient (IN) | payer MEDICARE, MEDICAID ==
[~2019-07-22] VITALS: Ht 165.1 cm; Wt 83.9 kg
[2019-07-22] MEDS ORDERED: METHYLPREDNISOLONE SOD SUCC 125 MG/2 ML VIAL IV STA (16:52)
[2019-07-22] MEDS ORDERED: ALBUTEROL (0.083%) 2.5MG/3ML NEB HHN STA (16:52)
[2019-07-22] MEDS ORDERED: IPRATROPIUM BROMIDE (0.02%) 0.5MG/2.5ML NEB HHN STA (16:52)
[2019-07-22 17:14] LABS: BASOPHILS % 1.4 % (0.0-2.0); EOSINOPHILS % 1.5 % (0.0-5.0); HEMATOCRIT. 47.7 % (42.0-52.0); HEMOGLOBIN. 14.9 g/dL (14.0-18.0); LYMPHOCYTES % 27.4 % (20.0-50.0); MEAN CORPUSCULAR HEMOGLOBIN 26.5 pg (28.0-32.0); MEAN CORPUSCULAR VOLUME 84.6 fL (80.0-94.0); MEAN PLATELET VOLUME 7.6 fl (7.4-10.4); MONOCYTES % 9.9 % (2.0-8.0); NEUTROPHILS % 59.8 % (40.0-76.0); PLATELET 310 x1000/uL (130-400); RED BLOOD CELL COUNT 5.63 mill/uL (4.7-6.1); RED CELL DISTRIBUTION WIDTH 17.4 % (11.6-14.6)
[2019-07-22 17:19] LABS: CHLORIDE 107 mEq/L (98-107)
[2019-07-22 17:37] LABS: BG BASE EXCESS -5.1 mmol/L (-2.0-2.0); BG CARBOXYHEMOGLOBIN 0.4 % (0.5-1.5); BG DEOXYHEMOGLOBIN 0.2 % (0.0-5.0); BG FRACTION INSPIRED OXYGEN 100; BG HCO3 ACT 19.2 mmol/L (22.0-26.0); BG METHEMOGLOBIN 0.4 % (0.0-1.5); BG OXYGEN SATURATION 99.8 % (92.0-98.5); BG PCO2 33.6 mmHg (35.0-45.0); BG PH 7.374 (7.350-7.450); BG PO2 367.7 mmHg (75.0-100.0); BG SAMPLE SITE RIGHT RADIAL; BG TOTAL HEMOGLOBIN 14.7 g/dL (12.0-18.0); BG VENT MODE MASK - NRB
[2019-07-22] MEDS ORDERED: ASPIRIN 325MG TABLET PO ONE (19:30)
[2019-07-22] MEDS ORDERED: FUROSEMIDE 40MG/4ML VIAL IVP ONE (19:30)
[2019-07-22] MEDS ORDERED: ONDANSETRON HCL 4MG/2ML INJ IV PRN (21:30)
[2019-07-22] MEDS ORDERED: MAGNESIUM/ALUMINUM HYDROXIDE/SIMETHICONE 30ML UDC PO PRN (21:30)
[2019-07-22] MEDS ORDERED: KETOROLAC 15MG/ML VIAL IV PRN (21:30)
[2019-07-22] MEDS ORDERED: CLONIDINE 0.1MG TABLET PO PRN (21:30)
[2019-07-22] MEDS ORDERED: ACETAMINOPHEN 325MG TABLET PO PRN ×2 (21:30)
[2019-07-22] MEDS ORDERED: IPRATROPIUM/ALBUTEROL 0.5-3(2.5)MG/3ML NEB NEB PRN (21:30)
[2019-07-22] MEDS ORDERED: ACETAMINOPHEN 650MG SUPP PR PRN (21:30)
[2019-07-22] MEDS ORDERED: GUAIFENESIN 200MG/10ML SUGAR FREE UDC PO PRN (21:30)
[2019-07-22] MEDS ORDERED: ZOLPIDEM TARTRATE 5MG TABLET PO PRN (21:30)
[2019-07-22] MEDS ORDERED: NITROGLYCERIN 0.4MG TABLET SL SL PRN (21:30)
[2019-07-22] MEDS ORDERED: DOCUSATE SODIUM 100MG CAPSULE PO PRN (21:30)
[2019-07-22] MEDS ORDERED: LORAZEPAM 0.5MG TABLET PO PRN (21:30)
[2019-07-22 23:00] VITALS: BP 160/80
[2019-07-22] MEDS: ENOXAPARIN 40MG/0.4ML SYR SUBCUT SCH (23:22)
[2019-07-22] MEDS: TRAMADOL 50MG TABLET PO PRN (23:29)
[2019-07-23] VITALS: BP 130/88
[2019-07-23] LABS: CREATINE KINASE MB FRACTION 4.2 ng/mL (0.5-3.6)
[2019-07-23] MEDS ORDERED: METO25TA6 PO (02:01)
[2019-07-23] MEDS ORDERED: TAMS-11 PO (02:01)
[2019-07-23 04:00] VITALS: BP 163/120
[2019-07-23 07:06] LABS: CREATINE KINASE MB FRACTION 3.1 ng/mL (0.5-3.6)
[2019-07-23] MEDS: TRAMADOL 50MG TABLET PO PRN ×2 (07:07→20:37)
[2019-07-23 08:00] VITALS: BP 140/98
[2019-07-23] MEDS: LISINOPRIL 10MG TABLET PO SCH ×2 (09:11→20:49)
[2019-07-23] MEDS: FAMOTIDINE 20MG TABLET PO SCH ×2 (09:11→20:37)
[2019-07-23] MEDS: METOPROLOL TARTRATE 50MG TABLET PO SCH ×2 (09:12→20:49)
[2019-07-23] MEDS: SPIRONOLACTONE 25MG TABLET PO SCH ×2 (09:12→16:28)
[2019-07-23] MEDS: FUROSEMIDE 40MG/4ML VIAL IVP SCH ×2 (09:12→16:28)
[2019-07-23] MEDS: ASPIRIN 325MG EC TABLET PO SCH (09:12)
[2019-07-23] MEDS ORDERED: METOLAZONE 10MG TABLET PO NR (11:30)
[2019-07-23 12:00] VITALS: BP 100/70
[2019-07-23 16:00] VITALS: BP 97/67
[2019-07-23 16:40] LABS: BASOPHILS % 0.3 % (0.0-2.0); HEMATOCRIT. 44.8 % (42.0-52.0); HEMOGLOBIN. 14.2 g/dL (14.0-18.0); LYMPHOCYTES % 7.8 % (20.0-50.0); MEAN CORPUSCULAR HEMOGLOBIN 26.8 pg (28.0-32.0); MEAN CORPUSCULAR VOLUME 84.5 fL (80.0-94.0); NEUTROPHILS % 85.9 % (40.0-76.0); PLATELET 306 x1000/uL (130-400)
[2019-07-23 16:45] LABS: CHLORIDE 105 mEq/L (98-107)
[2019-07-23 20:00] VITALS: BP 91/65
[2019-07-23] MEDS: ENOXAPARIN 40MG/0.4ML SYR SUBCUT SCH (20:37)
[2019-07-23] MEDS ORDERED: ATORVASTATIN CALCIUM 40MG TABLET PO SCH (21:00)
[2019-07-24] VITALS: BP 117/83
[2019-07-24 04:00] VITALS: BP 123/79
[2019-07-24 05:54] LABS: BASOPHILS % 0.8 % (0.0-2.0); HEMATOCRIT. 47.1 % (42.0-52.0); HEMOGLOBIN. 14.8 g/dL (14.0-18.0); LYMPHOCYTES % 8.4 % (20.0-50.0); MEAN CORPUSCULAR HEMOGLOBIN 26.6 pg (28.0-32.0); MEAN CORPUSCULAR VOLUME 84.3 fL (80.0-94.0); MEAN PLATELET VOLUME 8.2 fl (7.4-10.4); MONOCYTES % 5.4 % (2.0-8.0); NEUTROPHILS % 85.4 % (40.0-76.0); PLATELET 363 x1000/uL (130-400); RED BLOOD CELL COUNT 5.59 mill/uL (4.7-6.1); RED CELL DISTRIBUTION WIDTH 17.6 % (11.6-14.6)
[2019-07-24 06:15] LABS: CHLORIDE 103 mEq/L (98-107)
[2019-07-24 06:26] LABS: PHOSPHORUS 5.5 mg/dL (2.5-4.9)
[2019-07-24 08:00] VITALS: BP 129/54
[2019-07-24] MEDS: FAMOTIDINE 20MG TABLET PO SCH (08:50)
[2019-07-24] MEDS: ASPIRIN 325MG EC TABLET PO SCH (08:50)
[2019-07-24] MEDS: LISINOPRIL 10MG TABLET PO SCH (08:50)
[2019-07-24] MEDS: SPIRONOLACTONE 25MG TABLET PO SCH (08:51)
[2019-07-24] MEDS: METOPROLOL TARTRATE 50MG TABLET PO SCH (08:51)
[2019-07-24] MEDS: FUROSEMIDE 40MG/4ML VIAL IVP SCH (08:57)
[2019-07-24 10:01] VITALS: BP 129/54
[2019-07-24 11:56] VITALS: BP 111/75
== END 2019-07-24 12:22 | disposition home or self-care (01) | DRG 291 ==
LOC: ER 15:46 → 5WST 20:27 → EDBEDREQTM 20:42 → EDBEDREQ 20:42 → ENRESERV 20:56
PROVIDERS: ADMIT Internal Medicine; ATTEND Internal Medicine
PROC: 5A09357 Assistance with Respiratory Ventilation, Less than 24 Consecutive Hours, Continuous Positive Airway Pressure (ICD-10-PCS; principal; 2019-07-22)
PROC: 5A09357 Assistance with Respiratory Ventilation, Less than 24 Consecutive Hours, Continuous Positive Airway Pressure (ICD-10-PCS; 2019-07-23)
DX: I11.0 Hypertensive heart disease with heart failure (principal); J96.00 Acute respiratory failure, unspecified whether with hypoxia or hypercapnia; K29.70 Gastritis, unspecified, without bleeding; I50.43 Acute on chronic combined systolic (congestive) and diastolic (congestive) heart failure; I25.10 Atherosclerotic heart disease of native coronary artery without angina pectoris; E78.00 Pure hypercholesterolemia, unspecified; J44.9 Chronic obstructive pulmonary disease, unspecified; Z95.1 Presence of aortocoronary bypass graft; Z79.899 Other long term (current) drug therapy; Z87.11 Personal history of peptic ulcer disease; Z91.11 Patient's noncompliance with dietary regimen; Z91.14 Patient's other noncompliance with medication regimen; Z85.89 Personal history of malignant neoplasm of other organs and systems
CPT/HCPCS: 36415; 36600; 71045; 74176; 80048; 80053; 80061; 82375; 82550; 82553; 82805; 83036; 83735; 83880; 84100; 84484; 85025; 93005; 93970; 99291; J1650; J1885; J1940; J2930

== ENCOUNTER 2021-05-25 03:08 | Inpatient (IN) | payer MEDICARE, MEDICAID ==
[~2021-05-25] VITALS: Ht 165.1 cm; Wt 76.2 kg
[~2021-05-25 03:08] MED LIST: TAMS-11 PO
[2021-05-25] MEDS ORDERED: DEXT 5%/0.45% NACL 1000ML 1,000 ML IV ONE (03:15)
[2021-05-25 04:16] LABS: BASOPHILS % 0.4 % (0.0-2.0); HEMATOCRIT. 49.2 % (42.0-52.0); HEMOGLOBIN. 16.9 g/dL (14.0-18.0); LYMPHOCYTES % 16.6 % (20.0-50.0); MEAN CORPUSCULAR HEMOGLOBIN 30.2 pg (28.0-32.0); MEAN CORPUSCULAR VOLUME 88.1 fL (80.0-94.0); MEAN PLATELET VOLUME 8.3 fl (7.4-10.4); MONOCYTES % 10.3 % (2.0-8.0); NEUTROPHILS % 72.7 % (40.0-76.0); PLATELET 169 x1000/uL (130-400); RED BLOOD CELL COUNT 5.59 mill/uL (4.7-6.1); RED CELL DISTRIBUTION WIDTH 13.9 % (11.6-14.6)
[2021-05-25 04:38] LABS: CHLORIDE 103 mEq/L (98-107)
[2021-05-25 04:44] LABS: ETHANOL BLOOD < 10 mg/dL
[2021-05-25 08:43] LABS: *AMPHETAMINES SCREEN URINE NEGATIVE (NEGATIVE); *BARBITURATES SCREEN URINE NEGATIVE (NEGATIVE); *BENZODIAZEPINES SCREEN URINE PRESUMTIVE POSITIVE (NEGATIVE); *COCAINE SCREEN URINE NEGATIVE (NEGATIVE); CANNABINOID URINE SCREEN PRESUMTIVE POSITIVE (NEGATIVE)
[2021-05-25 08:44] LABS: METHADONE URINE SCREEN NEGATIVE (NEGATIVE); OPIATES URINE SCREEN PRESUMTIVE POSITIVE (NEGATIVE); PHENCYCLIDINE URINE SCREEN NEGATIVE (NEGATIVE)
[2021-05-25] MEDS ORDERED: DOCUSATE SODIUM 100MG CAPSULE PO PRN (10:15)
[2021-05-25] MEDS ORDERED: ONDANSETRON HCL 4MG/2ML INJ IV PRN (10:15)
[2021-05-25] MEDS ORDERED: CLONIDINE 0.1MG TABLET PO PRN (10:15)
[2021-05-25] MEDS ORDERED: KETOROLAC 15MG/ML VIAL IV PRN (10:15)
[2021-05-25] MEDS ORDERED: MAGNESIUM/ALUMINUM HYDROXIDE/SIMETHICONE 30ML UDC PO PRN (10:15)
[2021-05-25] MEDS ORDERED: NITROGLYCERIN 0.4MG TABLET SL SL PRN (10:15)
[2021-05-25] MEDS ORDERED: IPRATROPIUM/ALBUTEROL 0.5-3(2.5)MG/3ML NEB NEB PRN (10:15)
[2021-05-25] MEDS: ENOXAPARIN 40MG/0.4ML SYR SUBCUT SCH (11:32)
[2021-05-25] MEDS ORDERED: DEXTROSE 50% WATER 50ML SYRINGE IV PRN (12:15)
[2021-05-25] MEDS ORDERED: POTASSIUM CHLORIDE 20MEQ TABLET SR PO NR (12:15)
[2021-05-25] MEDS: INSULIN LISPRO 100 UNITS/ML SUBCUT SCH ×3 (13:20→21:00)
[2021-05-25] MEDS: BLOOD SUGAR DIAGNOSTIC STRIP TEST SCH ×3 (13:58→21:00)
[2021-05-25 14:57] VITALS: BP 110/81
[2021-05-25] MEDS ORDERED: ALPR-341 MT (15:15)
[2021-05-25] MEDS ORDERED: HYDR-4001 MT (15:15)
[2021-05-25] MEDS ORDERED: GLIP5TAB12 MT (15:15)
[2021-05-25] MEDS ORDERED: LISI-186 MT (15:15)
[2021-05-25] MEDS ORDERED: ATOR20TA65 MT (15:15)
[2021-05-25] MEDS: ACETAMINOPHEN 325MG TABLET PO PRN (15:52)
[2021-05-25 17:39] LABS: CREATINE KINASE 167 IU/L (39-308)
[2021-05-25 17:41] LABS: CREATINE KINASE MB FRACTION < 1.0 ng/mL (0.5-3.6)
[2021-05-25 17:51] LABS: FOLIC ACID (FOLATE) SERUM 18.4 ng/mL (>5.38)
[2021-05-25 20:00] VITALS: BP 102/58
[2021-05-25] MEDS: METOPROLOL TARTRATE 25MG TABLET PO SCH (21:00)
[2021-05-25] MEDS: ASCORBIC ACID 500 MG TABLET PO SCH (23:11)
[2021-05-25] MEDS: ZOLPIDEM TARTRATE 5MG TABLET PO PRN (23:12)
[2021-05-25] MEDS: FAMOTIDINE 20MG TABLET PO SCH (23:12)
[2021-05-25 23:46] LABS: CREATINE KINASE MB FRACTION 1.9 ng/mL (0.5-3.6)
[2021-05-26 04:00] VITALS: BP 107/63
[2021-05-26] MEDS: BLOOD SUGAR DIAGNOSTIC STRIP TEST SCH ×4 (06:40→21:00)
[2021-05-26] MEDS: INSULIN LISPRO 100 UNITS/ML SUBCUT SCH ×4 (07:10→21:00)
[2021-05-26 07:46] LABS: BASOPHILS % 0.2 % (0.0-2.0); HEMATOCRIT. 44.2 % (42.0-52.0); LYMPHOCYTES % 17.1 % (20.0-50.0); MEAN CORPUSCULAR HEMOGLOBIN 29.9 pg (28.0-32.0); MEAN CORPUSCULAR VOLUME 87.9 fL (80.0-94.0); MEAN PLATELET VOLUME 8.4 fl (7.4-10.4); MONOCYTES % 11.2 % (2.0-8.0); NEUTROPHILS % 71.5 % (40.0-76.0); PLATELET 185 x1000/uL (130-400); RED BLOOD CELL COUNT 5.03 mill/uL (4.7-6.1); RED CELL DISTRIBUTION WIDTH 13.9 % (11.6-14.6)
[2021-05-26 07:50] LABS: CHLORIDE 110 mEq/L (98-107)
[2021-05-26 08:00] VITALS: BP 145/75
[2021-05-26 08:00] LABS: PHOSPHORUS 2.2 mg/dL (2.5-4.9)
[2021-05-26] MEDS: METOPROLOL TARTRATE 25MG TABLET PO SCH ×2 (09:04→21:11)
[2021-05-26] MEDS: ACETAMINOPHEN 325MG TABLET PO PRN ×2 (09:04→21:12)
[2021-05-26] MEDS: FAMOTIDINE 20MG TABLET PO SCH ×2 (09:04→21:11)
[2021-05-26] MEDS: CHOLECALCIFEROL (D3) 1000 UNIT TABLET PO SCH (09:04)
[2021-05-26] MEDS: ASCORBIC ACID 500 MG TABLET PO SCH ×2 (09:04→21:00)
[2021-05-26] MEDS: ZINC SULFATE 220 MG ( 50 ) CAPSULE PO SCH (09:04)
[2021-05-26] MEDS: ASPIRIN 325MG EC TABLET PO SCH (09:04)
[2021-05-26 12:00] VITALS: BP 143/70
[2021-05-26] MEDS: ENOXAPARIN 40MG/0.4ML SYR SUBCUT SCH (12:13)
[2021-05-26 16:00] VITALS: BP 108/65
[2021-05-26 20:00] VITALS: BP 150/72
[2021-05-26] MEDS: ZOLPIDEM TARTRATE 5MG TABLET PO PRN (21:12)
[2021-05-27] VITALS: BP 129/66
[2021-05-27 04:00] VITALS: BP 116/71
[2021-05-27] MEDS: BLOOD SUGAR DIAGNOSTIC STRIP TEST SCH ×4 (06:45→20:48)
[2021-05-27] MEDS: INSULIN LISPRO 100 UNITS/ML SUBCUT SCH ×4 (07:10→20:49)
[2021-05-27 08:00] VITALS: BP 149/70
[2021-05-27] MEDS: ASPIRIN 325MG EC TABLET PO SCH (08:51)
[2021-05-27] MEDS: METOPROLOL TARTRATE 25MG TABLET PO SCH ×2 (08:51→20:47)
[2021-05-27] MEDS: FAMOTIDINE 20MG TABLET PO SCH ×2 (08:51→20:47)
[2021-05-27] MEDS: CHOLECALCIFEROL (D3) 1000 UNIT TABLET PO SCH (08:51)
[2021-05-27] MEDS: ZINC SULFATE 220 MG ( 50 ) CAPSULE PO SCH (08:52)
[2021-05-27 12:00] VITALS: BP 143/77
[2021-05-27] MEDS: ENOXAPARIN 40MG/0.4ML SYR SUBCUT SCH (12:26)
[2021-05-27] MEDS: GUAIFENESIN 200MG/10ML SUGAR FREE UDC PO PRN ×2 (12:26→17:03)
[2021-05-27] MEDS: ASCORBIC ACID 500 MG TABLET PO SCH ×2 (12:26→20:48)
[2021-05-27 16:00] VITALS: BP 140/69
[2021-05-27] MEDS ORDERED: DOCU100T MT (16:50)
[2021-05-27] MEDS ORDERED: CHOL200074 (16:50)
[2021-05-27] MEDS ORDERED: AMLO5TAB88 MT (16:50)
[2021-05-27] MEDS ORDERED: FURO40TA5 MT (16:50)
[2021-05-27] MEDS ORDERED: CARV6.2548 MT (16:50)
[2021-05-27] MEDS ORDERED: EMPA10TA MT (16:50)
[2021-05-27] MEDS ORDERED: ASPI-1497 MT (16:50)
[2021-05-27] MEDS ORDERED: ALBU4TAB6 MT (16:50)
[2021-05-27] MEDS: ACETAMINOPHEN 325MG TABLET PO PRN (17:04)
[2021-05-27 20:00] VITALS: BP 136/68
[2021-05-28] VITALS: BP 130/79
[2021-05-28 04:00] VITALS: BP 136/76
[2021-05-28] MEDS: BLOOD SUGAR DIAGNOSTIC STRIP TEST SCH ×4 (05:43→20:30)
[2021-05-28] MEDS: INSULIN LISPRO 100 UNITS/ML SUBCUT SCH ×4 (06:13→20:29)
[2021-05-28 08:00] VITALS: BP 151/66
[2021-05-28] MEDS: ASPIRIN 325MG EC TABLET PO SCH (09:00)
[2021-05-28] MEDS: CHOLECALCIFEROL (D3) 1000 UNIT TABLET PO SCH (09:00)
[2021-05-28] MEDS: FAMOTIDINE 20MG TABLET PO SCH ×2 (09:00→20:29)
[2021-05-28] MEDS: ACETAMINOPHEN 325MG TABLET PO PRN (09:00)
[2021-05-28] MEDS: ASCORBIC ACID 500 MG TABLET PO SCH ×2 (09:00→20:29)
[2021-05-28] MEDS: ZINC SULFATE 220 MG ( 50 ) CAPSULE PO SCH (09:00)
[2021-05-28] MEDS: METOPROLOL TARTRATE 25MG TABLET PO SCH ×2 (09:01→20:29)
[2021-05-28] MEDS: ENOXAPARIN 40MG/0.4ML SYR SUBCUT SCH (10:55)
[2021-05-28 12:00] VITALS: BP 144/73
[2021-05-28 16:00] VITALS: BP 134/55
[2021-05-28 20:00] VITALS: BP 158/72
[2021-05-28] MEDS: ZOLPIDEM TARTRATE 5MG TABLET PO PRN (20:29)
[2021-05-28] MEDS: GUAIFENESIN 200MG/10ML SUGAR FREE UDC PO PRN (20:29)
[2021-05-29] VITALS: BP 144/69
[2021-05-29 04:00] VITALS: BP 143/72
[2021-05-29] MEDS: ACETAMINOPHEN 325MG TABLET PO PRN ×3 (04:27→20:32)
[2021-05-29] MEDS: INSULIN LISPRO 100 UNITS/ML SUBCUT SCH ×3 (06:22→20:52)
[2021-05-29] MEDS: BLOOD SUGAR DIAGNOSTIC STRIP TEST SCH ×3 (06:22→20:51)
[2021-05-29 08:03] VITALS: BP 146/75
[2021-05-29] MEDS: GUAIFENESIN 200MG/10ML SUGAR FREE UDC PO PRN (08:49)
[2021-05-29] MEDS: FAMOTIDINE 20MG TABLET PO SCH ×2 (08:49→20:32)
[2021-05-29] MEDS: ASCORBIC ACID 500 MG TABLET PO SCH ×2 (08:49→20:32)
[2021-05-29] MEDS: CHOLECALCIFEROL (D3) 1000 UNIT TABLET PO SCH (08:49)
[2021-05-29] MEDS: ASPIRIN 325MG EC TABLET PO SCH (08:49)
[2021-05-29] MEDS: METOPROLOL TARTRATE 25MG TABLET PO SCH ×2 (08:49→20:33)
[2021-05-29] MEDS: ZINC SULFATE 220 MG ( 50 ) CAPSULE PO SCH (08:50)
[2021-05-29] MEDS: ENOXAPARIN 40MG/0.4ML SYR SUBCUT SCH (11:50)
[2021-05-29 12:00] VITALS: BP 141/68
[2021-05-29 16:00] VITALS: BP 145/71
[2021-05-29 20:00] VITALS: BP 155/72
[2021-05-29] MEDS: ZOLPIDEM TARTRATE 5MG TABLET PO PRN (20:51)
[2021-05-30] VITALS: BP 148/81
[2021-05-30 04:00] VITALS: BP 147/72
[2021-05-30] MEDS: ACETAMINOPHEN 325MG TABLET PO PRN (04:32)
[2021-05-30] MEDS: INSULIN LISPRO 100 UNITS/ML SUBCUT SCH ×4 (06:18→21:00)
[2021-05-30] MEDS: BLOOD SUGAR DIAGNOSTIC STRIP TEST SCH ×4 (06:18→21:10)
[2021-05-30 08:00] VITALS: BP 137/68
[2021-05-30] MEDS: ZINC SULFATE 220 MG ( 50 ) CAPSULE PO SCH (08:18)
[2021-05-30] MEDS: GUAIFENESIN 200MG/10ML SUGAR FREE UDC PO PRN (08:18)
[2021-05-30] MEDS: ASCORBIC ACID 500 MG TABLET PO SCH ×2 (08:18→21:08)
[2021-05-30] MEDS: ASPIRIN 325MG EC TABLET PO SCH (08:18)
[2021-05-30] MEDS: METOPROLOL TARTRATE 25MG TABLET PO SCH ×2 (08:18→21:10)
[2021-05-30] MEDS: CHOLECALCIFEROL (D3) 1000 UNIT TABLET PO SCH (08:18)
[2021-05-30] MEDS: FAMOTIDINE 20MG TABLET PO SCH ×2 (08:18→21:08)
[2021-05-30] MEDS: ENOXAPARIN 40MG/0.4ML SYR SUBCUT SCH (11:41)
[2021-05-30 12:00] VITALS: BP 148/71
[2021-05-30 16:00] VITALS: BP 151/69
[2021-05-30 20:00] VITALS: BP 140/72
[2021-05-30] MEDS ORDERED: ZOLPIDEM TARTRATE 5MG TABLET PO PRN (21:00)
[2021-05-31] MEDS: BLOOD SUGAR DIAGNOSTIC STRIP TEST SCH ×2 (06:49→11:40)
[2021-05-31] MEDS: INSULIN LISPRO 100 UNITS/ML SUBCUT SCH ×2 (07:36→12:10)
[2021-05-31 08:00] VITALS: BP 156/78
[2021-05-31] MEDS: ASPIRIN 325MG EC TABLET PO SCH (08:57)
[2021-05-31] MEDS: FAMOTIDINE 20MG TABLET PO SCH (08:57)
[2021-05-31] MEDS: ZINC SULFATE 220 MG ( 50 ) CAPSULE PO SCH (08:57)
[2021-05-31] MEDS: CHOLECALCIFEROL (D3) 1000 UNIT TABLET PO SCH (08:57)
[2021-05-31] MEDS: METOPROLOL TARTRATE 25MG TABLET PO SCH (08:58)
[2021-05-31 12:00] VITALS: BP 144/75
[2021-05-31] MEDS: ASCORBIC ACID 500 MG TABLET PO SCH (13:04)
[2021-05-31] MEDS: ENOXAPARIN 40MG/0.4ML SYR SUBCUT SCH (13:05)
[2021-05-31 14:28] VITALS: BP 144/75
== END 2021-05-31 16:20 | disposition home health service (06) | DRG 871 ==
LOC: ER 03:08 → 7EST 04:53 → EDBEDREQ 04:56 → EDBEDREQTM 04:56 → SUPCPDRO 09:38
PROVIDERS: ADMIT Internal Medicine; ATTEND Internal Medicine
DX: A41.89 Other specified sepsis (principal); U07.1 COVID-19; G92.8 Other toxic encephalopathy; J12.82 Pneumonia due to coronavirus disease 2019; J96.00 Acute respiratory failure, unspecified whether with hypoxia or hypercapnia; G45.9 Transient cerebral ischemic attack, unspecified; I50.22 Chronic systolic (congestive) heart failure; J44.0 Chronic obstructive pulmonary disease with (acute) lower respiratory infection; F11.10 Opioid abuse, uncomplicated; F12.10 Cannabis abuse, uncomplicated; F13.10 Sedative, hypnotic or anxiolytic abuse, uncomplicated; I11.0 Hypertensive heart disease with heart failure; E11.9 Type 2 diabetes mellitus without complications; I25.10 Atherosclerotic heart disease of native coronary artery without angina pectoris; E78.5 Hyperlipidemia, unspecified; E87.6 Hypokalemia; Z85.46 Personal history of malignant neoplasm of prostate; Z86.73 Personal history of transient ischemic attack (TIA), and cerebral infarction without residual deficits; Z95.1 Presence of aortocoronary bypass graft; Z87.891 Personal history of nicotine dependence; Z79.4 Long term (current) use of insulin; Z87.11 Personal history of peptic ulcer disease
CPT/HCPCS: 36415; 71045; 80053; 80061; 80305; 80320; 82550; 82553; 82607; 82746; 82962; 83036; 83540; 83550; 83615; 83735; 84100; 84145; 84443; 84484; 85025; 87426; 93005; 93970; 99291; J1650; J1815; G0480